=== PATIENT | female | born 2000 | race Caucasian/White ===

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

== ENCOUNTER 2020-10-24 01:00 | Emergency (ER) | payer OTHER ==
[~2020-10-24] VITALS: Ht 167.6 cm; Wt 72.6 kg
== END 2020-10-24 01:40 | disposition home or self-care (01) ==
LOC: ER 01:00
DX: J02.9 Acute pharyngitis, unspecified (principal); R05 Cough; R51.9 Headache, unspecified; Z20.822 Contact with and (suspected) exposure to COVID-19
CPT/HCPCS: 99283

== ENCOUNTER → 2021-08-06 | Outpatient (CLI) | payer OTHER | END | disposition home or self-care (01) | LOC: LAB SHORT 12:30 → LAB 12:30 | DX: N39.0 Urinary tract infection, site not specified (principal) | CPT/HCPCS: 87086; 87147 ==

== ENCOUNTER → 2023-06-01 | Outpatient (CLI) | payer BC, OTHER ==
[~2023-06-01] MED LIST changes: +Bactrim Ds Tab1 EACH PO; +Pyridium200 MG PO
== END | disposition home or self-care (01) ==
LOC: LAB SHORT 05-31 12:00 → LAB 05-31 12:00
DX: R12 Heartburn (principal)
CPT/HCPCS: 87338

== ENCOUNTER → 2024-04-13 | Outpatient (CLI) | payer BC, OTHER ==
[2024-04-13 17:46] LABS: Influenza B, PCR NEGATIVE (NEGATIVE); Resp Syncytial Virus, PCR NEGATIVE (NEGATIVE); SARS-Cov-2 (COVID-19) PCR, MMC NEGATIVE (NEGATIVE)
[2024-04-13 18:46] LABS: Influenza A, PCR POSITIVE (NEGATIVE)
== END | disposition home or self-care (01) ==
LOC: LAB 15:27 → LAB SHORT 15:27
PROVIDERS: Registered Nurse
DX: R50.9 Fever, unspecified (principal)
CPT/HCPCS: 0241U